=== PATIENT | female | born 1980 | race Caucasian/White ===

== ENCOUNTER 2017-12-12 13:33 | Emergency (ER) | payer OTHER ==
--- NOTE | 2017-12-12 14:21 | UC ---
Hand/Wrist HPI - HPI Summary HPI Summary: right 4/5 MC pain after getting hand shut in a cabinet door while moving it at work---incident happened 1 week ago---has been using ice and ibuprofen--has continued pain and some shooting nerve pain - History Of Current Complaint Chief Complaint: UCUpperExtremity Stated Complaint: HAND INJURY Time Seen by Provider: 12/12/17 13:51 Hx Obtained From: Patient Hx Last Menstrual Period: 09/12/14 ?: No Mechanism Of Injury: crush injury Onset/Duration: Sudden Onset, Still Present Severity Initially: Mild Severity Currently: Mild Character Of Pain: Aching Aggravating Factor(s): Movement Alleviating Factor(s): Rest, Ice, OTC Meds Associated Signs And Symptoms: Positive: Swelling, Bruising Related History: Dominant Hand Right - Allergies/Home Medications Allergies/Adverse Reactions: Allergies Allergy/AdvReac Type Severity Reaction Status Date / Time amoxicillin Allergy Difficulty Verified 12/12/17 14:19 Swallowing Penicillins Allergy Difficulty Verified 12/12/17 14:19 Swallowing codeine AdvReac Rash Verified 12/12/17 14:19 Home Medications: Home Medications Dextroamphetamine/Amphetamine [Adderall Xr 20 mg Capsule] 20 mg PO DAILY [History Confirmed 12/12/17] Fexofenadine HCl [Allergy Relief 24Hr] 180 mg PO DAILY 12/12/17 [History Confirmed 12/12/17] Fluticasone NASAL SPRAY 50MCG* [Flonase NASAL SPRAY 50MCG*] 2 spray BOTH NARES DAILY 12/12/17 [History Confirmed 12/12/17] Ibuprofen TAB* [Motrin TAB* 400 MG] 400 mg PO Q6H PRN 12/12/17 [History Confirmed 12/12/17] Norethindr/Eth Estradiol(Nf) [Lo Loestrin Fe (NF)] 1 tab PO DAILY 12/12/17 [ History Confirmed 12/12/17] PMH/Surg Hx/FS Hx/Imm Hx Previously Healthy: No Respiratory History: Asthma - Surgical History Surgical History: Yes Surgery Procedure, Year, and Place: TONSILLECTOMY 1988. SINUS SURGERY 2007 - Family History Known Family History: Positive: None - Social History Occupation: Employed Full-time Lives: With Family Alcohol Use: Weekly Substance Use Type: None Smoking Status (MU): Never Smoked Tobacco Review of Systems Constitutional: Negative Skin: Negative, Bruising - right hand 4/5 mc area Eyes: Negative ENT: Negative Respiratory: Negative Cardiovascular: Negative Gastrointestinal: Negative Genitourinary: Negative Motor: Negative Neurovascular: Negative Musculoskeletal: Arthralgia - right 4/5 mc pain Neurological: Negative Psychological: Negative Is Patient Immunocompromised?: No All Other Systems Reviewed And Are Negative: Yes Physical Exam Triage Information Reviewed: Yes Appearance: Well-Appearing, No Pain Distress, Well-Nourished Vital Signs Reviewed: Yes Eye Exam: Normal Eyes: Positive: Conjunctiva Clear ENT Exam: Normal ENT: Positive: Normal ENT inspection, Hearing grossly normal. Negative: Muffled voice, Hoarse voice, Dental tenderness Dental Exam: Normal Neck exam: Normal Neck: Positive: Supple, Nontender Respiratory Exam: Normal Respiratory: Positive: Chest non-tender, No respiratory distress, No accessory muscle use Cardiovascular Exam: Normal Cardiovascular: Positive: RRR, Pulses Normal, Brisk Capillary Refill Musculoskeletal Exam: Normal Musculoskeletal: Positive: Strength Intact, ROM Intact, Edema @ - right hand Neurological Exam: Normal Neurological: Positive: Alert, Muscle Tone Normal Psychological Exam: Normal Skin Exam: Normal Diagnostics - Radiology No standard instances Xray Interpretation: No Acute Changes Radiology Interpretation Completed By: ED Physician, Radiologist - Patient Name : MISTI VINES Medical Record#: [id number] Ordering Physician: Remedios Harvey NP Acct.#: [id number] : 1980 Age: 37 Sex: F Location: [facility] Exam Date: 12/12/17 1406 ADM Status: REG ER Order Information: HAND - RIGHT MINIMUM 3 VIEWS Accession Number: [id number] CPT: 57084 INDICATION: RIGHT fourth and fifth metacarpal pain following crush injury. COMPARISON: No relevant prior exams available on the [facility] PACS for comparison. TECHNIQUE: AP, lateral, and oblique views RIGHT hand. REPORT AND IMPRESSION: #. Soft tissue swelling over the dorsum of the hand most prominent at the level of the metacarpal phalangeal joints. Negative for fracture or malalignment. <Electronically signed by Yosef Huff MD in [place]> 12/12/17 142 Dictated By: Yosef Huff MD Dictated Date/Time: 12/12/17 142 Transcribed Date/Time: 12/12/171421 Copy to: CC:Remedios Harvey NP; Aiden Mann PA-C; Aleksander Genao MD Imaging - [facility] Imaging - [place] [facility] [place] Imaging - [facility] [address] [address] ph ([phone]) ph ([phone]) ph ([phone]) This report is only to be considered final once signed by the Provider(s) as displayed in the "<Electronically Signed by >" field (s). Absence of a signature indicates the report is in a draft status and still needs to be finalized. In the event this document was created by someone other than the signing Provider, the individual initiating the document will be listed in the "Entered by:" or "Dictated by:" ramirez. 1 of 1 Hand/Wrist Course/Dx - Course Course Of Treatment: sukhjinder, ibuprofen rest follow with orthopedic MD prn - Differential Dx/Diagnosis Provider Diagnoses: right hand contusion with parastesia Discharge - Sign-Out/Discharge Documenting (check all that apply): Patient Departure All imaging exams completed and their final reports reviewed: Yes - Discharge Plan Condition: Stable Disposition: HOME Patient Education Materials: Ibuprofen (By mouth), Contusion in Adults (ED), Paresthesia (ED) Forms: *Work Release Referrals: Carson Carrera MD [Medical Doctor] - If Needed - Billing Disposition and Condition Condition: STABLE Disposition: Home
--- NOTE | 2017-12-12 14:27 | RAD ---
INDICATION: RIGHT fourth and fifth metacarpal pain following crush injury. COMPARISON: No relevant prior exams available on the [facility] PACS for comparison. TECHNIQUE: AP, lateral, and oblique views RIGHT hand. REPORT AND IMPRESSION: #. Soft tissue swelling over the dorsum of the hand most prominent at the level of the metacarpal phalangeal joints. Negative for fracture or malalignment.
[2017-12-12 14:28] VITALS: BP 109/76
== END 2017-12-12 14:45 | disposition home or self-care (01) ==
LOC: UCEAST 13:33
DX: S60.221A Contusion of right hand, initial encounter (principal); J45.909 Unspecified asthma, uncomplicated; R20.2 Paresthesia of skin; Z88.0 Allergy status to penicillin; Z88.5 Allergy status to narcotic agent; W23.0XXA Caught, crushed, jammed, or pinched between moving objects, initial encounter; Y93.89 Activity, other specified; Y92.9 Unspecified place or not applicable; Y99.0 Civilian activity done for income or pay
CPT/HCPCS: 99202; G0463